=== PATIENT | male | born 1965 | race Two or more races ===

== ENCOUNTER 2022-08-27 18:03 | Emergency (ER) | payer MEDICAID ==
[~2022-08-27] VITALS: Ht 170.2 cm; Wt 84.8 kg
[2022-08-27] MEDS ORDERED: TETRACAINE HCL 0.5% OPHT DROP 2 ML BOTTLE ONE (19:11)
[2022-08-27] MEDS ORDERED: FLUORESCEIN SODIUM 1 MG STRIP ONE (19:11)
[2022-08-27] MEDS ORDERED: TDAP DIPH,PERTUSS,TET VAC/PF 0.5 ML DISP.SYRIN IM ONE (19:15)
[2022-08-27] MEDS ORDERED: TETRACAINE HCL 0.5% OPHT DROP 2 ML BOTTLE OP ONE (19:15)
[2022-08-27] MEDS ORDERED: MORPHINE SULFATE 4 MG/1 ML DISP.SYRIN IM ONE (19:15)
[2022-08-27] MEDS ORDERED: MORPHINE SULFATE 2 MG/1 ML DISP.SYRIN ONE (19:17)
[2022-08-27] MEDS ORDERED: MORPHINE SULFATE 4 MG/1 ML DISP.SYRIN ONE (19:17)
[2022-08-27] MEDS ORDERED: LIDOCAINE 2%-EPI 1:100,000 20 ML VIAL ONE (20:17)
[2022-08-27 20:26] LABS: PLATELET COUNT (AUTO) 297 K/uL (152-348)
[2022-08-27 20:40] LABS: BILIRUBIN,DIRECT 0.1 mg/dL (0.0-0.2); BILIRUBIN,TOTAL 0.4 mg/dL (0.2-1.0); CREATININE 0.8 mg/dL (0.6-1.3); POTASSIUM 3.8 mmol/L (3.5-5.1); TOTAL PROTEIN, SERUM 7.5 g/dL (6.4-8.2)
[2022-08-27] MEDS ORDERED: PIPERACILLIN SODIUM/TAZOBACTAM 4.5 G in IV DEXTROSE 5% 50 ML IV SCH (22:00)
== END 2022-08-27 21:40 | disposition short-term general hospital (02) ==
LOC: ER 18:08
DX: S05.31XA Ocular laceration without prolapse or loss of intraocular tissue, right eye, initial encounter (principal); S01.81XA Laceration without foreign body of other part of head, initial encounter; S02.31XA Fracture of orbital floor, right side, initial encounter for closed fracture; S02.2XXA Fracture of nasal bones, initial encounter for closed fracture; Y09 Assault by unspecified means; Y92.89 Other specified places as the place of occurrence of the external cause; Z20.822 Contact with and (suspected) exposure to COVID-19; D72.829 Elevated white blood cell count, unspecified; H54.61 Unqualified visual loss, right eye, normal vision left eye
CPT/HCPCS: 80076; 80048; 85025; 85730; 86850; 86900; 86901; 87426; 36415; 70450; 70480; 70486; 99285; 96372; 90471; J2270 ×2

== ENCOUNTER 2023-04-15 22:28 | Emergency (ER) | payer MEDICAID ==
[~2023-04-15] VITALS: Ht 170.2 cm; Wt 76.7 kg
[2023-04-16 00:14] VITALS: BP 133/78; O2SAT 99
== END 2023-04-16 00:14 | disposition left against medical advice (07) ==
LOC: ER 22:33
DX: H57.89 Other specified disorders of eye and adnexa (principal)
CPT/HCPCS: A4606; A4663